=== PATIENT | female | born 1970 | race Caucasian/White ===

== ENCOUNTER 2017-12-10 03:43 | Inpatient (IN) | payer OTHER ==
[~2017-12-10] VITALS: Ht 172.7 cm; Wt 97.1 kg
[~2017-12-10 03:43] MED LIST: BACTRIM DS TAB1 EACH PO; MULTIVITAMINS1 EAC9 PO
--- NOTE | 2017-12-10 10:40 | Admission Core Measures ---
Acute Coronary Syndrome (CM) ACS Core Measures Acute Coronary Syndrome Diagnosis No Congestive Heart Failure (NEW) CHF Core Measures Congestive Heart Failure Diagnosis No Cerebrovascular Accident CVA Core Measures CVA/TIA Diagnosis No Venous Thromboembolism VTE Core Marianne (View Protocol) VTE Risk Factors Surgery No Mechanical VTE Prophylaxis d/t N/A MechProphylax Ordered No VTE Pharm Prophylaxis d/t NA PharmProphylax ordered Problem List As ranked by this Provider includes Assessment & Plan 1. Unilateral primary osteoarthritis, right hip HOME MEDS Home Med List Multiple Vitamin (Multivitamins) 1 EACH TABLET 1 TAB PO DAILY SUPPLEMENT ( Reported) Sulfamethoxazole/Trimethoprim (Bactrim Ds Tablet) 800 MG-160 MG TABLET 1 TAB PO BID SKIN STAPH INFECTION (Reported)
[2017-12-10] MEDS ORDERED: ASPIRIN EC325 M2 PO (10:41)
[2017-12-10] MEDS ORDERED: COLACE100 M1 PO (10:41)
[2017-12-10] MEDS ORDERED: PRILOSEC OTC20 M1 PO (10:41)
[2017-12-10] MEDS ORDERED: MIRALAX17 G1 PO (10:41)
[2017-12-10] MEDS ORDERED: DILAUDID2 M1 PO (10:41)
--- NOTE | 2017-12-10 10:43 | Patient Discharge Instructions ---
Discharge Instructions General Discharge Information You were seen/treated for: Right hip pain realted to unilateral primary osteoarthritis You had these procedures: Right total hip replacement Watch for these problems: Increasing pain despite the use of pain medication Increasing redness, warmth or swelling Drainage of any type from incision Inability to bear weight on operative leg Persistent nausea and vomiting Fever greater than 101.5 degrees Do not soak the wound: Yes No bath, but you may shower: Yes Other wound care: Please keep wound clean and dry. No ointments or lotions of any type on or near incision at any time. No exceptions. Your dressing will be changed by your nurse on the second day after your surgery. Daily dry dressing changes are recommended each day thereafter. Do not soak your wound in a bath or pool at any time until otherwise indicated by your surgeon. You may shower, please dry wound immediately after shower with a clean towel. Special Instructions: Aspirin: You are taking this medication to help prevent blood clot formation. Please take with food to protect your stomach lining. Please take as directed. Constipation: Pain medication can cause constipation. Your surgeon has recommended that you take Colace and miralax each day. You may discontinue this medication if you develop loose stool or diarrhea. If you wish to continue this medication, it is available over the counter. If you are unable to move your bowels after several days, if you are unable to pass gas and are developing bloating, nausea, or vomiting as a result, please contact your doctor. Diet Continue normal diet: Yes Recommended Diet: Regular Activity Full Activity/No Limits: No Activity Self Limited: Yes Pounds, do NOT lift more than: 10 Acute Coronary Syndrome Inclusion Criteria At DC or during hospital stay patient has or had the following: ACS DIAGNOSIS No Discharge Core Measures Meds if any: Prescribed or Continued at Discharge Meds if any: NOT Prescribed or Continued at Discharge Congestive Heart Failure Inclusion Criteria At DC or during hospital stay patient has or had the following: CHF DIAGNOSIS No Discharge Core Measures Meds if any: Prescribed or Continued at Discharge Meds if any: NOT Prescribed or Continued at Discharge Cerebrovascular accident Inclusion Criteria At DC or during hospital stay patient has or had the following: CVA/TIA Diagnosis No Discharge Core Measures Meds if any: Prescribed or Continued at Discharge Meds if any: NOT Prescribed or Continued at Discharge Venous thromboembolism Inclusion Criteria VTE Diagnosis No VTE Type NONE VTE Confirmed by (Test) NONE Discharge Core Measures - Per Current guidelines, there needs to be overlap - treatment for the first 5 days of Warfarin therapy. - If discharged on Warfarin prior to 5 days of - overlap therapy, the patient will need to be - assessed for post discharge needs including - *Post discharge parental anticoagulation - *Warfarin and/or parental anticoagulation education - *Follow up date to check INR post discharge At least 5 days overlap therapy as Inpatient No Meds if any: Prescribed or Continued at Discharge Note: Overlap Therapy is Warfarin and Anticoagulant Meds if any: NOT Prescribed or Continued at Discharge
--- NOTE | 2017-12-10 10:45 | Surgical Discharge Summary ---
Visit Information Visit Dates Admission Date: 12/10/17 Discharge Date: 12/12/17 History of Present Illness Chief Complaint: Right hip pain related to unilateral primary osteoarthritis Surgical History Pertinent Surgical History: non-contributory Review of Systems: See H&P Hospital Course Course Attending Physician: Hilton Crabtree MD [facility] Phys[facility] Course: Patient was admitted to the hospital for an elective total joint replacement. The procedure was tolerated well and patient was transferred to a general surgical floor. Diet was advanced and tolerated. She had one episode of syncope on POD #1 attributed to pain medication administration and this was corrected. The patient was evaluated and treated by physical therapy. At the time of hospital discharge, the vital signs were stable, neurovascular status was intact, and pain was controlled with the use of oral pain medications. Allergies: Coded Allergies: No Known Allergies (12/09/17) Disposition Summary Disposition Principal Diagnosis: Right hip unilateral primary osteoarthritis Additional Diagnosis: None Discharge Disposition: home health services Discharge Instructions General Discharge Information Code Status: Full Code Patient's Diet: Regular, advance as tolerated Patient's Activity: WBAT Follow-Up Instructions/Appts: Follow up with Dr. Crabtree in 6 weeks from date of surgery. Please call office to arrange &/or confirm this appointment. Medications at Discharge Discharge Medications: Continue taking these medications: Multiple Vitamin (Multivitamins) 1 EACH TABLET 1 Tablet ORAL DAILY Sulfamethoxazole/Trimethoprim (Bactrim Ds Tablet) 800 MG-160 MG TABLET 1 Tablet ORAL TWICE DAILY Start taking the following new medications: Aspirin (Ecotrin*) 325 MG TABLET. 1 Tablet ORAL TWICE DAILY Qty = 60 No Refills Docusate Sodium (Colace) 100 MG CAPSULE 1 Capsule ORAL TWICE DAILY Qty = 14 No Refills Instructions: DISCONTINUE USE IF YOU DEVELOP LOOSE STOOL OR DIARRHEA Polyethylene Glycol 3350 (Miralax) 17 GRAM POWD.PACK 1 Packet ORAL DAILY Qty = 7 No Refills Instructions: dissolve in water, DISCONTINUE USE IF YOU DEVELOP LOOSE STOOL OR DIARRHEA Omeprazole Magnesium (Prilosec Otc) 20 MG TABLET.DR 1 Tablet ORAL DAILY Qty = 30 No Refills Hydromorphone HCl (Dilaudid) 2 MG TABLET 1-2 Tablet ORAL EVERY 4-6 HOURS NEEDED as needed for PAIN Qty = 36 No Refills
--- NOTE | 2017-12-10 10:46 | RADIOLOGY REPORT ---
EXAMINATION: XR HIP, RIGHT CLINICAL INFORMATION: Status post right total hip replacement. COMPARISON: None TECHNIQUE: AP and crosstable lateral views of the right hip. FINDINGS: Prosthetic components of the right total hip arthroplasty are appropriately aligned. No periprosthetic fracture. Gas from recent surgery is present in the surrounding soft tissues. Drainage tubing is in place. IMPRESSION: Normal postoperative appearance of the right total hip prosthesis.
[2017-12-10 11:41] VITALS: BP 106/68
--- NOTE | 2017-12-10 13:17 | PN- Orthopedic ---
Subjective Subjective: Feeling tired, mildly weak, not lightheaded or dizzy. Has voided twice. Objective Vital Signs and I&Os Vital Signs Date Time Temp Pulse Resp B/P B/P Pulse O2 O2 Flow FiO2 Mean Ox Delivery Rate 12/10 1141 97.8 94 18 106/68 99 Room Air Intake & Output 12/10 0800 12/10 0000 12/09 1600 12/09 0800 12/09 0000 Intake Total Output Total 500 Balance -500 Output, Urine 500 Patient 214 lb 215 lb Weight Physical Exam: Well-developed well-nourished no apparent distress. HEENT: Atraumatic, extraocular motion intact Neck: Supple, no lymphadenopathy Respiratory: No respiratory distress Extremities: No edema RIGHT lower extremity hip dressing in place, Dressing clean dry and intact Hemovac drain in place, recently emptied, 95 cc of bloody drainage noted Minimal thigh swelling No signs of infection. No shortening or rotation Hip range of motion is limited and without unexpected pain Neurovascularly intact distally Bilateral calves are supple, nontender. Neuro: Alert and oriented x3 Psych: Mood affect normal, normal memory normal judgment. Skin: Warm and dry, no rash on exposed skin Results Recent Imaging Studies: R hip post op xray wnl Assessment/Plan Assessment/Plan pod #0 sp R BOBY anterior approach Perioperative antibiotics. Pain medication as needed. Out of bed Physical therapy, weightbearing as tolerated DC IV fluids Regular diet Follow a.m. labs Aspirin for DVT prophylaxis ALPS for DVT prophylaxis Regular home meds Dressing change postop day 2 Continue hemovac drain Dispo planning: to home tomorrow w vna Core Measures Venous Thromboembolism VTE Risk Factors Surgery No Mechanical VTE Prophylaxis d/t N/A MechProphylax Ordered No VTE Pharm Prophylaxis d/t NA PharmProphylax ordered
[2017-12-10 15:40] VITALS: BP 110/64
--- NOTE | 2017-12-10 17:35 | Operative Report ---
Operative/Inv Procedure Report Surgery Date: 12/10/17 Name of Procedure: Right total hip replacement Pre-Operative Diagnosis: Primary right hip DJD Post-Operative Diagnosis: Same Estimated Blood Loss: 300 Surgeon/Junior Mechanical Engineer: Leyda HEDRICK,Hilton Ghosh Anesthesia: block Operative/Procedure Note Note: Description of Procedure: The patient was taken to the operating room and positively identified. After induction of spinal anesthesia and administration of appropriate pre-operative antibiotics, the patient was positioned supine on the operating room table and all bony prominences were well padded. After performing a surgical timeout, the right lower extremity was prepped and draped in the usual sterile fashion. A direct anterior approach was made to the right hip. The incision was carried sharply through superficial soft tissues to the level of the fascia. Meticulous hemostasis was maintained with Bovie electocautery. The fascia over the tensor fascia jeff muscle was opened sharply and the interval between the TFL and the sartorius was entered bluntly taking care to stay lateral to the lateral femoral cutaneous nerve. Retractors were placed around the femoral neck and the pericapsular fat was identified. The ascending branches of the lateral femoral circumflex vessels were identified and carefully coagulated. The pericapsular fat and anterior capsule were then resected. A napkin ring osteotomy was performed and the femoral head was removed without difficulty. Attention was then turned to the acetabulum. After appropriate placement of retractors, the acetabulum was exposed. Soft tissue was cleaned from the acetabular margin and notch. Overhanging osteophytes were removed and the teardrop was exposed. The acetabulum was then sequentially reamed to accept a 56 mm Rashad Tritanium hemispherical solid shell. This was impacted into place in the appropriate position and fitted with a 32 mm Trident X3 zero degree polyethylene insert. Attention was then turned to the femur. After performing the appropriate ligament releases, the proximal femur was exposed. It was then sequentially broached to accept a size #4 [place] Accolade 2 132 neck angle stem. This was trialed for leg length and stability. The trial component was removed and the final component was impacted into place. The trunnion was carefully cleaned and fit with a 32 mm, +0 Biolox delta ceramic femoral head. The hip was reduced and put through a full range of motion and found to be stable. The articular space was then irrigated with sterile saline. The periarticular soft tissues were infilitrated with Marcaine. The fascial layer was closed with interrupted #1 vicryl suture and the skin was re-approximated with interrupted 2 -0 vicryl. The skin was closed with a running 3-0 V-Lock suture. Steri-strips and a sterile dressing were applied. The patient was awakened and taken to the recovery room in satisfactory condition.
[2017-12-10 18:51] VITALS: BP 100/66
[2017-12-10 20:36] VITALS: BP 110/74
[2017-12-10 23:45] VITALS: BP 100/62
[2017-12-11 01:54] VITALS: BP 110/56
[2017-12-11 07:02] VITALS: BP 104/68
--- NOTE | 2017-12-11 07:17 | PN- Orthopedic ---
See Addendum Subjective Subjective: pod#1 s/p right marcy no major issues overnight deneis cp, sob, no n+v with diet minimal ambulation with pt yesterday Objective Vital Signs and I&Os Vital Signs Date Time Temp Pulse Resp B/P B/P Pulse O2 O2 Flow FiO2 Mean Ox Delivery Rate 12/11 0702 97.5 101 20 104/68 98 12/11 0154 97.4 91 20 110/56 98 12/10 2345 98.2 93 18 100/62 96 12/10 2036 98.0 74 18 110/74 99 12/10 1851 97.9 85 18 100/66 100 Room Air 12/10 1540 98.5 85 18 110/64 98 Room Air 12/10 1141 97.8 94 18 106/68 99 Room Air Intake & Output 12/11 0800 12/11 0000 12/10 1600 12/10 0800 12/10 0000 12/09 1600 Intake Total 460 375 Output Total 160 595 Balance 300 -220 Intake, IV 160 75 Intake, Oral 300 300 Output, 160 95 Drainage Output, Urine 500 Patient 214 lb 215 lb Weight Physical Exam: cv: rrr lungs: clear abd: soft, +bs ext: fright thigh soft, calves soft/no tenderness to palp distal cms intact, drsg dry, drain d/c'd Assessment/Plan Assessment/Plan ortho stable plan f/u am labs, slightly tachy this am, possible post op anemia cont oob with pt today cont current med regime home d/c later today when cleared by pt Core Measures Venous Thromboembolism VTE Risk Factors Surgery No Mechanical VTE Prophylaxis d/t N/A MechProphylax Ordered No VTE Pharm Prophylaxis d/t NA PharmProphylax ordered
[2017-12-11 09:02] LABS: ABSOLUTE BASOPHIL COUNT 0 /CUMM (0.0-0.2); ABSOLUTE EOSINOPHIL COUNT 0.1 /CUMM (0.0-0.7); ABSOLUTE GRANULOCYTE CT 5.7 /CUMM (1.4-6.5); ABSOLUTE LYMPH COUNT 3.1 /CUMM (1.2-3.4); ABSOLUTE MONOCYTE COUNT 0.8 /CUMM (0.10-0.60); BASOPHIL % 0.5 % (0.0-2.0); GRANULOCYTE % 58.7 % (42.2-75.2); HEMATOCRIT 35.1 % (37-47); MEAN CORPUSCULAR HGB 32.5 PG (27.0-31.0); MEAN CORPUSCULAR HGB CONC 34.4 G/DL (33.0-37.0); MEAN CORPUSCULAR VOLUME 94.6 FL (81.0-99.0); MEAN PLATELET VOLUME 6.9 FL (7.4-10.4); PLATELET COUNT 208 /CUMM (130-400); RBC DISTRIBUTION WIDTH 12.4 % (11.5-14.5); RED BLOOD CELL CT 3.71 /CUMM (4.20-5.40); WHITE BLOOD CELL COUNT 9.8 /CUMM (4.8-10.8)
[2017-12-11 12:03] VITALS: BP 100/60
[2017-12-11 14:14] VITALS: BP 150/60
[2017-12-11 14:22] VITALS: BP 96/50
[2017-12-11 22:40] VITALS: BP 120/64
[2017-12-12 01:53] VITALS: BP 110/56
--- NOTE | 2017-12-12 06:51 | PN- Orthopedic ---
Subjective Subjective: POD #2 s/p right THR. Resting comfortably in bed. "I had a set back yesterday ". Syncopized. Does not feel dizzy or lightheaded at present. Voiding spontaneously, pain controlled. passing flatus. No BM yet. Objective Vital Signs and I&Os Vital Signs Date Time Temp Pulse Resp B/P B/P Pulse O2 O2 Flow FiO2 Mean Ox Delivery Rate 12/12 0153 98.9 87 20 110/56 96 12/11 2240 98.6 101 20 120/64 98 12/11 1422 97.5 97 18 96/50 100 Room Air 12/11 1203 97.7 92 18 100/60 100 Room Air 12/11 0702 97.5 101 20 104/68 98 Intake & Output 12/12 0812/12 0000 12/11 1600 12/11 0000 12/10 1600 Intake Total 400 510 350 460 375 Output Total 600 1700 70 160 595 Balance -200 -1190 280 300 -220 Intake, IV 110 250 160 75 Intake, Oral 400 400 100 300 300 Output, 70 160 95 Drainage Output, Urine 600 1700 500 Patient 214 lb Weight Physical Exam: Gen: AAOx3 in NAD Cor: S1+S2+ Lungs: CTA dominic Abd: soft, NT, ND Ext: right hip dressing removed, replaced. Incision C/D/I with steristrips. No erythema or drainage noted. Palpable Dp pulse. Dorsiflexion/plantar flexion intact to right leg. Sensation grossly intact. Current Medications: Current Medications Sig/Rian Start time Last Medication Dose Route Stop Time Status Admin Acetaminophen 1,000 MG Q6 12/10 1800 DC 12/11 IV 12/11 1201 1204 Aspirin 325 MG BID 12/10 2099 AC 12/11 PO 2027 Docusate Sodium 100 MG BID 12/10 2099 AC 12/11 PO 2027 Hydromorphone HCl 2 MG Q4P PRN 12/10 1130 AC 12/10 PO 1715 Hydromorphone HCl 4 MG Q4P PRN 12/10 1130 AC 12/10 PO 2100 Ketorolac 30 MG Q8P PRN 12/11 1030 AC 12/12 Tromethamine IV 0607 Morphine Sulfate 2 MG Q2P PRN 12/10 1130 AC IV Multivitamins 1 TAB DAILY 12/11 09 AC 12/11 Therapeutic PO 0930 Omeprazole 40 MG DAILY AC 12/11 0700 AC 12/12 PO 0606 Ondansetron HCl 4 MG Q6P PRN 12/10 1130 AC IV Polyethylene Glycol 17 GM DAILY 12/11 0900 AC 12/11 PO 0931 Potassium Chloride 20 MEQ BID 12/11 1044 AC 12/11 PO 2027 Promethazine HCl 12.5 MG Q6P PRN 12/10 1130 AC IV 12/17 1029 Trimethoprim/ 1 TAB BID 12/10 2100 AC 12/11 Sulfamethoxazole PO 2027 Results Last 48 Hours of Labs: Laboratory Tests 12/11 12/11 1145 0810 Chemistry Sodium (137 - 145 mmol/L) 137 Potassium (3.5 - 5.1 mmol/L) 3.2 L Chloride (98 - 107 mmol/L) 106 Carbon Dioxide (22 - 30 mmol/L) 23 Anion Gap (5 - 16) 7 BUN (7 - 17 mg/dL) 9 Creatinine (0.5 - 1.0 mg/dL) 0.7 Estimated GFR (>60 ml/min) > 60 BUN/Creatinine Ratio (7 - 25 %) 12.9 Magnesium (1.6 - 2.3 mg/dL) 1.9 Hematology CBC w Diff NO MAN DIFF REQ WBC (4.8 - 10.8 /CUMM) 9.8 RBC (4.20 - 5.40 /CUMM) 3.71 L Hgb (12.0 - 16.0 G/DL) 12.1 Hct (37 - 47 %) 35.1 L MCV (81.0 - 99.0 FL) 94.6 MCH (27.0 - 31.0 PG) 32.5 H MCHC (33.0 - 37.0 G/DL) 34.4 RDW (11.5 - 14.5 %) 12.4 Plt Count (130 - 400 /CUMM) 208 MPV (7.4 - 10.4 FL) 6.9 L Gran % (42.2 - 75.2 %) 58.7 Lymphocytes % (20.5 - 51.1 %) 32.1 Monocytes % (1.7 - 9.3 %) 7.7 Eosinophils % (0 - 5 %) 1.0 Basophils % (0.0 - 2.0 %) 0.5 Absolute Granulocytes (1.4 - 6.5 /CUMM) 5.7 Absolute Lymphocytes (1.2 - 3.4 /CUMM) 3.1 Absolute Monocytes (0.10 - 0.60 /CUMM) 0.8 H Absolute Eosinophils (0.0 - 0.7 /CUMM) 0.1 Absolute Basophils (0.0 - 0.2 /CUMM) 0 Urines Urine Color (YEL,AMB,STR) YEL Urine Clarity (CLEAR) CLEAR Urine pH (5.0 - 8.0) 7.0 Ur Specific [place] (1.001 - 1.035) <= 1.005 Urine Protein (NEG,<30 MG/DL) NEG Urine Ketones (NEG) NEG Urine Nitrite (NEG) NEG Urine Bilirubin (NEG) NEG Urine Urobilinogen (0.1 - 1.0 EU/dl) 0.2 Ur Leukocyte Esterase (NEG) NEG Ur Microscopic SEDIMENT EXAMINED Urine WBC (0 - 2 /HPF) 1-3 H Ur Epithelial Cells (NONE,FEW) FEW Urine Hemoglobin (NEG) TRACE-INTACT Urine Glucose (N MG/DL) NEG Assessment/Plan Assessment/Plan A: POD #2 s/p right THR; AVSS Plan: D/C home with services today. Continue ASA. Core Measures Venous Thromboembolism VTE Risk Factors Surgery No Mechanical VTE Prophylaxis d/t N/A MechProphylax Ordered No VTE Pharm Prophylaxis d/t NA PharmProphylax ordered
[2017-12-12 07:37] VITALS: BP 110/70
== END 2017-12-12 12:52 | disposition home health service (06) | DRG 470 ==
LOC: SDA 03:43 → ENRESERV 10:18 → ENTRNSPT 10:30 → EDTRNSPT 10:54 → EDTRNSPTSTS 10:54 → 2NA 11:09 → CMPTRNSPT 11:10 → ENPENDDIS 12-12 12:21 → ENTRNSPT 12-12 12:34 → EDTRNSPT 12-12 12:35 → EDTRNSPTSTS 12-12 12:45 → EDTRNSPT 12-12 12:45 → 2NA 12-12 12:52 → CMPTRNSPT 12-12 13:08
PROVIDERS: Nurse Practitioner
PROC: 0SR904A Replacement of Right Hip Joint with Ceramic on Polyethylene Synthetic Substitute, Uncemented, Open Approach (ICD-10-PCS; principal; 2017-12-10)
DX: M16.11 Unilateral primary osteoarthritis, right hip (principal); R55 Syncope and collapse; F41.9 Anxiety disorder, unspecified; J45.909 Unspecified asthma, uncomplicated
CPT/HCPCS: 2NAP; 36592; 73502-RT; 81001; 81025; 82436; 97110-GO; 97116-GO; 97161-GP; 97530-GO; J0131; J0690; J0735; J1885; J2405; J2550; J7042